=== PATIENT | male | born 1935 | race Caucasian/White ===

== ENCOUNTER 2022-11-19 07:13 | Outpatient (CLI) | payer MEDICARE | END 2022-11-19 07:14 | disposition home or self-care (01) | LOC: CSHCP 07:13 | PROVIDERS: ATTEND Internal Medicine Critical Care Medicine | DX: R06.02 Shortness of breath (principal); J44.9 Chronic obstructive pulmonary disease, unspecified | CPT/HCPCS: 94060; 94726; 94729; 94760 ==

== ENCOUNTER 2023-05-13 09:06 | Outpatient (CLI) | payer MEDICARE | END 2023-05-13 09:07 | disposition home or self-care (01) | LOC: CSHMRI 09:06 | PROVIDERS: ATTEND Family Medicine | DX: M54.42 Lumbago with sciatica, left side (principal); M54.41 Lumbago with sciatica, right side; R29.898 Other symptoms and signs involving the musculoskeletal system; M47.816 Spondylosis without myelopathy or radiculopathy, lumbar region; Q76.49 Other congenital malformations of spine, not associated with scoliosis; I71.40 Abdominal aortic aneurysm, without rupture, unspecified | CPT/HCPCS: 72148 ==